=== PATIENT | male | born 1980 | race Two or more races ===

== ENCOUNTER 2021-02-23 15:22 | Emergency (ER) | payer OTHER ==
--- NOTE | 2021-02-23 15:29 | EDM.PDOC ---
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 Denies: Old Records (No [facility] records available) History Limitations: Reports: No Limitations - History of Present Illness INITIAL COMMENTS - FREE TEXT/NARRATIVE: The patient was brought to the emergency room via private automobile by his client service supervisor, Sumeet, for evaluation of a Workmen's Compensation [place], [place] 8:15 AM yesterday morning. The patient was putting in a culvert when a piece of sheet metal punctured his right leg in 2 places with previous non-related right foot injury with mild cellulitis in all the above areas. He has been cleaning the wound out and placing Neosporin dressing on the above wounds with 600 mg of Tylenol taken at about 1 PM this afternoon. He has no pain at rest with mild 5/10 leg pain with ambulation at the injection sites, however no history of fall, head injury, joint instability, neck/back pain, change in mental status, neurological deficits, or other complaints or injuries. He did notice some possible mild drainage from the new puncture wounds yesterday, however not today. He was able to perform his normal work duties both yesterday and today. The patient also denies any recent fever, cough, wheezing, dyspnea, etc.. No recent history of abdominal pain, heartburn, nausea, diarrhea, melena, gross hematochezia, or any food intolerance, including fatty foods, etc.. The patient denies any chest pain/pressure, heart flutter, dizziness, orthostasis, orthopnea, diaphoresis, paresthesias, recent decreased exercise tolerance, or any other anginal-type symptoms. Note that the patient normally lives in [place] and is working in [place] this summer. Onset: Sudden Onset Date: 02/22/21 Onset Time: 08:15 Duration: Constant, Getting Worse Location: Reports: Lower Extremity, Right. Denies: Head, Face, Neck, Chest, Abdomen, Back, Pelvis, Upper Extremity, Left, Upper Extremity, Right, Lower Extremity, Left, Radiates to Quality: Reports: Ache Severity: Mild Improves with: Reports: Rest Worsens with: Reports: Movement Context: Reports: Trauma (As above) Associated Symptoms: Reports: Rash. 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: Reports: NSAIDS, Other Medication(s), Other (see below) (As above) - Related Data Allergies Allergy/AdvReac Type Severity Reaction Status Date / Time No Known Allergies Allergy Verified 02/23/21 15:23 Home Meds: Home Meds Amoxicillin/Potassium Clav [Augmentin 875-125 Tablet] 1 each PO BIDMEALS #20 tablet 02/23/21 [Rx] Past Medical History Cardiovascular History: Denies: Hypertension - Infectious Disease History Infectious Disease History: Denies: Novel Coronavirus (Completely immunized with last dose in December 2020.) Social & Family History - Tobacco Use Tobacco Use Status *Q: Current Every Day Tobacco User Tobacco Use Within Last Twelve Months: Cigarettes Years of Tobacco use: 25 Packs/Tins Daily: 0.5 Packs/Tins Daily Comment: Started smoking at age 15 with maximum use of 1 pack/day. 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 ED EXAM, GENERAL - Physical Exam Exam: See Below Exam Limited By: No Limitations General Appearance: Alert, WD/WN, No Apparent Distress Head: Atraumatic, Normocephalic. No: Facial Swelling, Facial Tenderness, Sinus Tenderness Neck: Normal Inspection, Supple, Non-Tender, Full Range of Motion. No: Lymphadenopathy (L), Lymphadenopathy (R), Thyromegaly Respiratory/Chest: No Respiratory Distress, Lungs Clear, Normal Breath Sounds, No Accessory Muscle Use, Chest Non-Tender. No: Pleural Rub, Retractions Cardiovascular: Normal Peripheral Pulses, Regular Rate, Rhythm, No Edema, No Gallop, No JVD, No Murmur, No Rub. No: Gallop/S3, Gallop/S4, Friction Rub Peripheral Pulses: 2+: Radial (L), Radial (R), Dorsalis Pedis (R) GI/Abdominal: Normal Bowel Sounds, Soft, Non-Tender, No Organomegaly, No Distention, No Abnormal Bruit, No Mass, Pelvis Stable, Other (Mildly obese). No: Guarding (Male) Exam: Deferred Rectal (Males) Exam: Deferred Back Exam: Normal Inspection, Full Range of Motion. No: CVA Tenderness (L), CVA Tenderness (R), Muscle Spasm Extremities: Normal Range of Motion, No Pedal Edema, Normal Capillary Refill, Redness (3 cm +2 erythema around proximal right lateral fibula, 4 cm +2 erythema around mid lateral fibular region, and 1 cm area around dorsal lateral right footold injury), Other (Superficial abrasion right lateral footold. Superficial abrasion 1 cm right proximal lateral fibula. 1.5 cm puncture wound mid lateral right fibula with no foreign body or lymphangitis any of these lesions. No drainage.). No: Joint Swelling, Jean's Sign, Leg Pain (Mild palpation pain at laceration sites), Limited Range of Motion, Increased Warmth Neurological: Alert, Oriented, CN II-XII Intact, Normal Cognition, Normal Gait, No Motor/Sensory Deficits Psychiatric: Normal Affect, Normal Mood Skin Exam: Erythema (As above), Tattoo(s) (Multiple), Wound/Incision (As above). No: Diaphoretic, Increased Warmth, Lymphangitis Lymphatic: No Adenopathy Course - Vital Signs Last Recorded V/S: Last Vital Signs Temp 37.2 C 02/23/21 15:25 Pulse 95 02/23/21 15:25 Resp 18 02/23/21 15:25 BP 155/96 H 02/23/21 15:25 Pulse Ox 100 02/23/21 15:25 Vital Signs - 24 hr 02/23/21 15:25 Temperature [ 37.2 C Oral] Pulse, 95 Peripheral [ Left Pulse Oximetry] Respiratory 18 Rate Blood Pressure 155/96 H [Right Upper Arm] O2 Sat by Pulse 100 Oximetry - Orders/Labs/Meds Orders: Active Orders 24 hr Category Date Time Status Vaccines to be Administered [RC] PER UNIT ROUTINE Care 02/23/21 15:47 Active Obtain Past Medical Record [OM.PC] Routine Oth 02/23/21 15:29 Active Labs: None Meds: Medications Discontinued Medications Generic Name Dose Route Start Last Admin Trade Name Freq PRN Reason Stop Dose Admin Ceftriaxone Sodium 1 gm 02/23/21 15:30 02/23/21 15:49 Ceftriaxone 1 Gm Vial IM 02/23/21 15:31 1 gm ONETIME ONE Administration Diphtheria/Tetanus/Acell Pertussis 0.5 ml 02/23/21 15:47 02/23/21 15:51 Diphtheria,Pertussis(Acell),Tetanus Vaccine 0.5 Ml Syringe IM 02/23/21 15:48 0.5 ml .ONCE ONE Administration Lidocaine HCl 2.1 ml 02/23/21 15:29 02/23/21 15:48 Lidocaine 1% 5 Ml Sdv INJECT 02/23/21 15:30 2.1 ml ONETIME ONE Administration Neomycin/Polymyxin/Bacitracin 1 each 02/23/21 15:46 02/23/21 15:54 Bacitracin/Neomycin/Polymyxin B Oint 0.9 Gm U/D Packet TOP 02/23/21 15:47 1 each ONETIME ONE Administration - Radiology Interpretation Free Text/Narrative:: None Departure - Departure Time of Disposition: 16:21 Disposition: Home, Self-Care 01 Condition: Good Clinical Impression: Elevated blood pressure reading, Tobacco abuse counseling Cellulitis Qualifiers: Site of cellulitis: extremity Site of cellulitis of extremity: lower extremity Laterality: right Qualified Code(s): L03.115 - Cellulitis of right lower limb - Discharge Information *PRESCRIPTION DRUG MONITORING PROGRAM REVIEWED*: Not Applicable *COPY OF PRESCRIPTION DRUG MONITORING REPORT IN PATIENT COREY: Not Applicable Prescriptions: Amoxicillin/Potassium Clav [Augmentin 875-125 Tablet] 1 each PO BIDMEALS #20 tablet Instructions: Steps to Quit Smoking, [id number], Health Risks of Smoking, Cellulitis, Adult, [id number] Referrals: PCP,Unknown [Primary Care Provider] - Forms: ED Department Discharge, ED Return to Work/School Form Additional Instructions: 1. Followup with your regular provider in 10-14 days as directed. Bring these discharge instructions with you to that visit. 2. Tylenol 650 mg by mouth every 4 hours and/or OTC ibuprofen 2-3 tabs by mouth every 6 hours with food as directed./needed. You may stagger these medications for 48-72 hours only, which essentially means that you are receiving a pain medication about every 2 hours. 3. Diarrhea precautions with your antibiotic therapy/Augmentin with Augmentin to be started with breakfast tomorrow. 4. Antibacterial soap wash/soak with subsequent antibacterial dressing such as Neosporin, etc. as directed 2 times per day until the wound or laceration site completely heals. Keep the area clean and dry with activity restrictions as discussed. Never use hydrogen peroxide for wound care. 5. Stop all tobacco use ABBEY as directed/per provided information and consider contacting Quit LIne, etc.. 6. Immediately after this visit verify that your cellular telephone's voicemail has been activated and is empty. Also verify that your home telephone's answering machine is operating properly and has space to receive messages. Note that it is sometimes necessary for us to be able to contact you at a later date to discuss your medical care. 7. Please remember that we are ALWAYS here for you and want to answer any questions you may have. Feel free to call the hospital any time and we call you back ABBEY. 8. Continue to observe your blood pressures closely through your regular provider. Sepsis Event Note (ED) - Evaluation Sepsis Screening Result: No Definite Risk - Focused Exam Vital Signs: Vital Signs Temp Pulse Resp BP Pulse Ox 02/23/21 15:25 37.2 C 95 18 155/96 H 100 - Problem List & Annotations (1) Cellulitis SNOMED Code(s): 299942419 Code(s): L03.90 - CELLULITIS, UNSPECIFIED Status: Acute Priority: High Current Visit: Yes Onset Date: ~02/22/21 Annotation/Comment:: Beginning cellulitis without lymphangitis, etc. IM Rocephin given in the emergency room with initiation of Augmentin therapy tomorrow. Patient does feel that he can perform his normal work duties and did work earlier today. Work excuse and Workmen's Compensation forms were completed. Wound care, etc. were discussed. TDAP was given with the patient uncertain when he had his last tetanus booster. Puncture wounds were cleansed with chlorhexidine swabs with Neosporin dressing placed by the nurse. Qualifiers: Site of cellulitis: extremity Site of cellulitis of extremity: lower extremity Laterality: right Qualified Code(s): L03.115 - Cellulitis of right lower limb (2) Elevated blood pressure reading SNOMED Code(s): 85291400 Code(s): R03.0 - ELEVATED BLOOD-PRESSURE READING, W/O DIAGNOSIS OF HTN Status: Acute Priority: Medium Current Visit: Yes Onset Date: 02/23/21 A nnotation/Comment:: No previous history of hypertension. Continue to observe his blood pressures closely through his regular provider. (3) Tobacco abuse counseling SNOMED Code(s): 119707107, 120053909, 433786302 Code(s): Z71.6 - TOBACCO ABUSE COUNSELING Status: Chronic Priority: Medium Current Visit: Yes Annotation/Comment:: Tobacco cessation information provided tobacco cessation strongly encouraged. - Problem List Review Problem List Initiated/Reviewed/Updated: Yes - My Orders Last 24 Hours: My Active Orders 02/23/21 15:29 Obtain Past Medical Record [OM.PC] Routine 02/23/21 15:47 Vaccines to be Administered [RC] PER UNIT ROUTINE - Assessment/Plan Last 24 Hours: My Active Orders 02/23/21 15:29 Obtain Past Medical Record [OM.PC] Routine 02/23/21 15:47 Vaccines to be Administered [RC] PER UNIT ROUTINE Assessment:: As above Plan: As above. Extensive precautions were given to the patient and his client service supervisor, who are in agreement with the treatment plan. See Patient Instructions for further treatment and plan.
[2021-02-23] MEDS ORDERED: cefTRIAXone 1 GM Vial IM ONE (15:30)
[2021-02-23] MEDS ORDERED: Bacitracin/Neomycin/Polymyxin B Oint 0.9 GM U/D Packet TOP ONE (15:46)
[2021-02-23] MEDS ORDERED: Diphtheria,Pertussis(Acell),Tetanus Vaccine 0.5 ML Syringe IM ONE (15:47)
== END 2021-02-23 16:21 | disposition home or self-care (01) ==
LOC: LL.ED 15:22
DX: L03.115 Cellulitis of right lower limb (principal); I10 Essential (primary) hypertension; Z72.0 Tobacco use; Z71.6 Tobacco abuse counseling; Z23 Encounter for immunization
CPT/HCPCS: 90471; 90715; 96372; 99282; 99284; J0696

== ENCOUNTER 2021-11-04 09:26 | Emergency (ER) | payer BC | END 2021-11-04 12:00 | disposition home or self-care (01) | LOC: LL.ED 09:26 | DX: S43.491A Other sprain of right shoulder joint, initial encounter (principal); Z72.0 Tobacco use; W00.9XXA Unspecified fall due to ice and snow, initial encounter | CPT/HCPCS: 73030-RT; 99283 ==